=== PATIENT | female | born 1935 | race Caucasian/White ===

== ENCOUNTER → 2016-09-17 | Outpatient (CLI) | payer MEDICARE, BC ==
[~2016-09-17] MED LIST: ESTR0.6256; LEVO50TA83; LORA-441; METO-103; PANT40TA3; SUCR1TAB
--- NOTE | 2016-09-17 15:40 | RADRPT ---
PROCEDURE: Right knee radiographs. CLINICAL INDICATION: Right knee pain. TECHNIQUE: Three views. Weight bearing. Frontal, lateral, and patellar view. COMPARISON: No prior studies are available for comparison. FINDINGS: There is no fracture or dislocation. There is no joint effusion. There is chondrocalcinosis of the menisci. The articular surfaces are intact. There are small osteophytes arising from the medial and lateral joint compartment margins. There is no lytic or blastic lesion. There is no radiopaque foreign body. IMPRESSION: 1. Chondrocalcinosis of the menisci, likely degenerative. 2. Small osteophytes arising from the medial and lateral joint compartments. 3. Otherwise unremarkable images of the right knee. RPTAT: QQ .Riki Kirkland MD, MD Date Time Electronically viewed and signed by .Riki Kirkland MD, on 09/17/2016 15:40 .R/
--- NOTE | 2016-09-17 15:45 | RADRPT ---
PROCEDURE: XR right elbow. CLINICAL INDICATION: Right elbow pain. TECHNIQUE: Three views. Frontal, lateral, and oblique. COMPARISON: No prior study is available for comparison. FINDINGS: There is no fracture or dislocation. There is posterior soft tissue swelling. There may be a fluid in the elbow joint. Articular surfaces are intact. There is no lytic or blastic lesion. There is no radiopaque foreign body. IMPRESSION: 1. Posterior soft tissue swelling. 2. Possible fluid in the elbow joint. This may indicate a nondisplaced intra-articular fracture. Correlation with CT scan or MRI should be considered. 3. Otherwise unremarkable study. RPTAT: QQ .Riki Kirkland MD, MD Date Time Electronically viewed and signed by .Riki Kirkland MD, on 09/17/2016 15:45 .R/
--- NOTE | 2016-09-17 18:56 | HKNOTE ---
DATE OF SERVICE: 09/17/2016 REFERRING PHYSICIAN: Dr. Yves Calderon, [id number] [facility], [address], [place] [address]. MAIN COMPLAINT: 1. Pain in the right knee. 2. Pain in the right elbow. HISTORY OF MAIN COMPLAINT: The patient is an 81-year-old female who developed pain in her right kne e about a month ago. She saw Dr. Yves Calderon, who obtained x-rays of the knee. The radiologist di agnosed possible pseudogout due to some calcification in the meniscus. Dr. Calderon referred her to me for further evaluation of her painful knee. There was no history of injury to the knee. The pain started spontaneously approximately a month ag o. The pain is aggravated by stair climbing. She gets a great deal of pain when she first stands u p from sitting. She has to "jiggle her leg around" to get going. Her pain is described as being se niki. She has difficulty with stairs. She does not get any rest pain or night pain. She has been taking Extra Strength Tylenol and Ativan for the pain. This does help "somewhat." The patient took a fall about 10 days ago and landed on her right arm. She was seen in an urgent ca re, where x-rays were taken, and she was told she had a "hairline fracture of the right elbow." The physician who took care of her raymon a drawing illustrating a crack across the radial neck of the el bow. She had an undisplaced fracture of the radial head. The patient was given a sling for the rig ht arm which she has been wearing faithfully ever since. PRIOR ORTHOPEDIC INJURIES: None. The patient had 1 episode of back pain 5 years ago which was abisai lyssa by a chiropractor. Her right knee feels unstable. It swells, but there is no locking except that possibly when she is standing up from a sitting position the knee "locks and I have to jiggle it loose." She limps slightly in the mornings when she takes her first steps. She does not have a shoe lift. She has difficulty clipping her toenails and tying her shoelaces on the right side. SPORTING ACTIVITIES: Walking, yoga, tennis (can no longer do those). PAST ORTHOPEDIC HISTORY: PREVIOUS ORTHOPEDIC OPERATIONS: None. ALCOHOL INTAKE: One glass of wine with dinner on occasion. OTHER JOINT PROBLEMS: Right elbow. BLOOD TESTS FOR ARTHRITIS: None. PRIOR INJURIES TO HIPS OR KNEES: None. WORK STATUS: The patient is retired. PAST MEDICAL HISTORY: Mitral valve prolapse. PAST SURGICAL HISTORY: 1. Tonsillectomy as a child. 2. Cataract surgery. 3. Bilateral eyelid surgery. 4. Hysterectomy. ALLERGIES: NONE. MEDICATIONS: 1. Levothyroxine 50 mcg daily. 2. Metoprolol 50 mg daily. 3. Lorazepam 50 mg twice daily for anxiety. 4. Extra Strength Tylenol as needed for pain or headaches. FAMILY HISTORY: Father at 80 of heart problems. Mother at 93 of unstated cause. SYSTEMS REVIEW: Occasional heartburn, varicose veins, gait disturbance due to her right knee proble m, heart defect (mitral valve prolapse), hysterectomy. HABITS: The patient does not smoke. She drinks 1 glass of wine with dinner occasionally. PIGS FEET CLEANER: Dr. Yves Calderon, [id number] [facility], [address], [place] [address]. PHYSICAL EXAMINATION GENERAL: Delightful (remarkably youthful) 81-year-old female. She has a sling on her right arm. VITAL SIGNS: Height 5 feet 3 inches. Weight 120 pounds. Blood pressure 185/90, temperature 98.7. GAIT: The patient has a sling on her right arm. She walks without a cane. She has an antalgic gai t. HIPS: Both hips have full range of motion without pain. RIGHT KNEE: The right knee shows normal alignment. Active and passive extension lacks 3 or 4 degre es (painful). Active and passive flexion lacks 25 degrees (painful). The medial and lateral collat eral ligaments and cruciate ligaments are intact. Delon test is negative. There is 2+ effusion. Tender over the medial joint line. There is no scarring, crepitus or cysts. The patella tracks nor sylvia. There is no tenderness on the articular surface of the patella or in the patellar groove. T he Q angle is normal. IMAGING: Plain x-rays of the right knee brought with her from Dr. Calderon's office were reviewed. Th steffen show mild narrowing of all 3 joint spaces (mild degenerative changes). Imaging of the right elbow obtained today after the sling had been removed does not show any evidenc e of a fracture. Note that the physician at the urgent care center raymon a picture of her elbow and raymon a line where he thought there might be a fracture, which is across the neck of the radial head. However, there was no fracture visible on today's pictures. The patient has marked tenderness ove r the right radial head. DIAGNOSES: 1. 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 2. Probable internal derangement (torn meniscus) of the right knee. 3. Possible undisplaced fracture of the right radial head. MANAGEMENT: 1. The patient being sent for an MRI scan of the right knee. 2. A CAT scan will be obtained of her right elbow to confirm or rule out a fracture on the neck of the radius. Dictated By: ESTELA CHA/BIRGIT Conf#: [id number] DID#: [id number]
== END | disposition home or self-care (01) ==
LOC: HKI 14:00
DX: M17.11 Unilateral primary osteoarthritis, right knee (principal)
CPT/HCPCS: 73080; 73562; G0463

== ENCOUNTER → 2016-10-08 | Outpatient (CLI) | payer MEDICARE, BC ==
--- NOTE | 2016-10-14 22:07 | HKNOTE ---
DATE OF SERVICE: The patient comes in with her MRI scan for review. The MRI scan of the right knee obtained on 09/[address] Valdez as showing "lateral meniscus reveals oblique tear, hear horizonta l tearing affecting the posterior horn and mid zone communicating with the inferior articulating jitendra face adjacent to the free edge. Moderate partial thickness chondral loss affecting the lateral comp artment of the knee. Moderate chondromalacia of the patella." The patient also has had a CAT scan of her right elbow and the CAT scan shows that there is an undis placed fracture of the radial head. The patient continues to have pain in the elbow. It is difficu lt for me to evaluate whether or not the undisplaced fracture some 2 weeks after the injury needs an y interventional procedure. Also, if she has an arthroscopic operation on the knee, she will need t o use his walker and I am not sure that she could do so with pain in her elbow. Currently, the elbo w is her main problem. MANAGEMENT: The patient is advised that she will definitely need to have an arthroscopic operation on the right knee. She is being referred to Dr. Zaire Mane for evaluation of her elbow to see i f there is any intervention required. The patient is advised that the torn meniscus is not an urgent problem. It is unlikely that she constantin l cause any major damage to the knee by delaying the arthroscopic procedure. The arthroscopic proce dure itself was discussed with her briefly in terms of the logistics. Once I get the report from Dr. Mane about the elbow, we could make a better decision concerning wh ether or not to proceed with the arthroscopic surgery sooner. She was given an appointment to abelino fraser Dictated By: ESTELA CHA/BIRGIT Conf#: [id number] DID#: [id number]
== END | disposition home or self-care (01) ==
LOC: HKI 13:42
DX: S83.281A Other tear of lateral meniscus, current injury, right knee, initial encounter (principal); S52.124A Nondisplaced fracture of head of right radius, initial encounter for closed fracture; X58.XXXA Exposure to other specified factors, initial encounter